=== PATIENT | female | born 1960 | race Caucasian/White ===

== ENCOUNTER → 2016-06-15 | Outpatient (REF) | payer OTHER | LOC: M SFHCWAGY 14:37 | PROVIDERS: ATTEND Nurse Practitioner Women's Health | DX: Z12.4 Encounter for screening for malignant neoplasm of cervix (principal) ==

== ENCOUNTER → 2016-06-15 | Outpatient (CLI) | payer BC ==
--- NOTE | 2016-06-15 15:20 | REPMRS ---
Patient History The patient states she had a clinical breast exam in 06/22 Patient is postmenopausal and is nulliparous. Digital Woman Screen Mammo: June 15, 2016 - Exam #: [id number] Bilateral CC and MLO view(s) were taken. Technologist: Anju Anne, Technologist Prior study comparison: July 30, 2014, digital woman screen mammo performed at [facility]. May 28, 2013, digital woman screen mammo performed at [facility]. FINDINGS: The breast tissue is heterogeneously dense. This may lower the sensitivity of mammography. There has been no change in the appearance of the mammogram from the prior studies. There is a moderate amount of residual fibroglandular tissue which is fairly symmetric. There is no interval development of dominant mass, areas of architectural distortion, or clustered microcalcification typical of malignancy. ASSESSMENT: BI-RADS/ACR category 1 mammogram. Negative. Recommendation Routine screening mammogram in 1 year (for women over age 40). This mammogram was interpreted with the aid of an FDA-approved computer-aided dectection system. Electronically Signed By: Joiv Lopez MD 06/15/16 [id number]
== END ==
LOC: M WHC 13:24
PROVIDERS: ATTEND Nurse Practitioner Women's Health
DX: Z12.31 Encounter for screening mammogram for malignant neoplasm of breast (principal); Z78.0 Asymptomatic menopausal state; Z92.89 Personal history of other medical treatment

== ENCOUNTER → 2016-09-05 | Outpatient (RCR) | payer BC, OTHER | LOC: M CR 08-17 08:31 | PROVIDERS: ATTEND Physician Assistant | DX: Z51.89 Encounter for other specified aftercare (principal); I25.10 Atherosclerotic heart disease of native coronary artery without angina pectoris; Z45.1 Encounter for adjustment and management of infusion pump ==

== ENCOUNTER 2016-09-28 12:51 | Outpatient (RCR) | payer BC, OTHER | END 2016-10-06 | LOC: M CR 12:51 | PROVIDERS: ATTEND Physician Assistant | DX: Z51.89 Encounter for other specified aftercare (principal); I25.10 Atherosclerotic heart disease of native coronary artery without angina pectoris; Z45.1 Encounter for adjustment and management of infusion pump ==

== ENCOUNTER 2017-11-22 07:20 | Day surgery (SDC) | payer BC, OTHER ==
[~2017-11-22 07:20] MED LIST: LIDOCAINE 2% INJ 100 MG/5 ML SDV (FOR ANES.) As Ordered; PROPOFOL 200 MG/20 ML VIAL As Ordered
[2017-11-22] MEDS: NS 1,000 ML IV ×2 (07:30)
[2017-11-22] MEDS ORDERED: fentaNYL 100 MCG/2 ML INJECTION (J3010) As Ordered ×2 (08:25)
[2017-11-22] MEDS ORDERED: PROPOFOL 200 MG/20 ML VIAL As Ordered ×2 (08:47)
== END 2017-11-22 09:35 | disposition home or self-care (01) ==
LOC: M OPP 07:20
DX: Z12.11 Encounter for screening for malignant neoplasm of colon (principal); K64.0 First degree hemorrhoids (principal); R10.13 Epigastric pain; K44.9 Diaphragmatic hernia without obstruction or gangrene; K31.89 Other diseases of stomach and duodenum; K31.5 Obstruction of duodenum; I11.0 Hypertensive heart disease with heart failure; E78.5 Hyperlipidemia, unspecified; K21.9 Gastro-esophageal reflux disease without esophagitis; I50.9 Heart failure, unspecified; F41.9 Anxiety disorder, unspecified; G43.909 Migraine, unspecified, not intractable, without status migrainosus; M31.30 Wegener's granulomatosis without renal involvement; Z79.82 Long term (current) use of aspirin; Z79.899 Other long term (current) drug therapy; Z88.2 Allergy status to sulfonamides; Z95.2 Presence of prosthetic heart valve; Z95.1 Presence of aortocoronary bypass graft; Z87.891 Personal history of nicotine dependence; Z91.89 Other specified personal risk factors, not elsewhere classified; Z78.0 Asymptomatic menopausal state
CPT/HCPCS: 45378

== ENCOUNTER → 2018-02-23 | Outpatient (CLI) | payer BC, OTHER ==
[~2018-02-23] MED LIST changes: +ASPI1TAB PO; +CELL500T PO; +CENT1TAB PO; +CITRTAB18 PO; +DOCU100C16 PO; +FLUO20CA8 PO; +IRBE75TA5 PO; -LIDOCAINE 2% INJ 100 MG/5 ML SDV (FOR ANES.) As Ordered; +METO50TA7 PO; +NAPR-885 PO; +OMEP40CA2 PO; +PRED1TABL PO; -PROPOFOL 200 MG/20 ML VIAL As Ordered; +ROSU20TA4 PO; +TORS20TA2 PO; +VITA500T PO; +[UNRECOGNIZED DRUG - OTHER] PO
--- NOTE | 2018-02-23 15:16 | REP ---
MAXILLOFACIAL CT WITHOUT CONTRAST: HISTORY: Chronic maxillary sinusitis. COMPARISON: 10/27/2010 Minimal mucosal thickening is present in the right maxillary sinus. The remaining sinuses are clear. The ostiomeatal units are patent. The middle and inferior nasal turbinates are partially paradoxical. There is minimal deviation of the nasal septum to the right. The cribriform plate, medial forrest of the orbits and optic canals are intact. The carotid canals form a segment of the posterolateral forrest of the sphenoid sinus. The right sphenoid sinus septum inserts into the right internal carotid canal wall. IMPRESSION: Sinus mucosal thickening as described above. Electronically Signed by Silver Eubanks MD 02/23/2018 03:21 P
== END ==
LOC: M RAD 14:43
PROVIDERS: ATTEND Otolaryngology
DX: J32.9 Chronic sinusitis, unspecified (principal)

== ENCOUNTER → 2018-06-15 | Outpatient (CLI) | payer BC ==
[~2018-06-15] MED LIST changes: -ASPI1TAB PO; +ASPI81TA26 PO; +CETI10TA4 PO; -[UNRECOGNIZED DRUG - OTHER] PO
--- NOTE | 2018-06-15 10:37 | REPMRS ---
Patient History The patient states she had a clinical breast exam in 06/2018. Patient is postmenopausal and is nulliparous. No known family history of cancer. No Hormone Replacement Therapy Digital Woman Screen Mammo: June 15, 2018 - Exam #: [id number] Bilateral CC and MLO view(s) were taken. Technologist: Ginny Parsons, Technologist Prior study comparison: June 15, 2016, digital woman screen mammo performed at [facility]. July 30, 2014, digital woman screen mammo performed at [facility]. May 28, 2013, digital woman screen mammo performed at [facility]. FINDINGS: The breast tissue is heterogeneously dense. This may lower the sensitivity of mammography. There is a moderate amount of heterogeneously dense fibroglandular tissue which is fairly symmetric. There is no interval development of dominant mass, architectural distortion, or clustered microcalcification typical of malignancy. There has been no change in the appearance of the mammogram from the prior studies. 3-D tomosynthesis shows no additional findings. Assessment: BI-RADS/ACR category 1 mammogram. Negative Mammogram. Recommendation Routine screening mammogram of both breasts in 1 year (for women over age 40). This patient's Lifetime Breast Cancer RIsk is estimated at 9.9 %. This mammogram was interpreted with the aid of an FDA-approved computer-aided dectection system. Electronically Signed By: Zan Morrow MD 06/15/18 [id number]
== END ==
LOC: M WHC 08:27
PROVIDERS: ATTEND Nurse Practitioner Women's Health
DX: Z12.31 Encounter for screening mammogram for malignant neoplasm of breast (principal); Z78.0 Asymptomatic menopausal state

== ENCOUNTER → 2018-06-15 | Outpatient (REF) | payer OTHER ==
[2018-06-19 14:16] LABS: HPV HYBRID CAPTURE II Negative (Negative)
== END ==
LOC: M SFHCWAGY 08:44
PROVIDERS: ATTEND Nurse Practitioner Women's Health
DX: Z12.4 Encounter for screening for malignant neoplasm of cervix (principal); Z78.0 Asymptomatic menopausal state
CPT/HCPCS: 87624; G0123

== ENCOUNTER → 2019-02-07 | Outpatient (REF) | payer OTHER ==
[~2019-02-07] MED LIST changes: +FLUO20CA20 PO; -FLUO20CA8 PO; -OMEP40CA2 PO; +OMEP40CA97 PO; -ROSU20TA4 PO; +ROSU20TA5 PO
== END ==
LOC: M SFHCWAGY 16:54
PROVIDERS: ATTEND Nurse Practitioner Family
DX: L02.214 Cutaneous abscess of groin (principal)

== ENCOUNTER → 2020-08-12 | Outpatient (REF) | payer OTHER ==
[~2020-08-12] MED LIST changes: +IRBE75TA4 PO; -IRBE75TA5 PO; +OMEP40CA4 PO; -OMEP40CA97 PO; +VITA-243 PO; -VITA500T PO
== END ==
LOC: M SFHCWAGY 13:16
PROVIDERS: ATTEND Nurse Practitioner Women's Health
DX: Z12.4 Encounter for screening for malignant neoplasm of cervix (principal); Z01.419 Encounter for gynecological examination (general) (routine) without abnormal findings

== ENCOUNTER → 2020-08-12 | Outpatient (CLI) | payer BC, OTHER ==
--- NOTE | 2020-08-12 10:12 | REP ---
INDICATION: SCR MAMMO. COMPARISON: Multiple TECHNIQUE: Digital screening mammography was cardio bilaterally in the CC and MLO projections in both 2D and 3D modalities and compared to the prior exams. By history, the patient has no complaints of a palpable breast abnormality or other significant breast complaints. FINDINGS: The breasts are unchanged in size and shape. Once again, dense heterogenous nodular fibroglandular elements are seen bilaterally to such a degree that the sensitivity of the mammogram in detecting cancers decreased. In the right breast upper inner quadrant retroglandular adipose there is an asymmetric density. There is a group of calcifications seen in conjunction with this density. No other suspicious features are seen in either breast. Scattered benign calcifications are again seen bilaterally. There is no skin thickening or nipple retraction. The Volpara volumetric breast density pattern is C. IMPRESSION: BIRADS/ACR category 0 mammogram. Jose asymmetric density seen in the right breast as described above and for which diagnostic digital magnified spot compression views are recommended in the CC and MLO projections. Spot DBT images may be utilized. An exaggerated CC medial view may also be necessary. Follow-up with diagnostic ultrasonography may be indicated. This patient's Tyrer-Cuzick lifetime breast cancer risk assessment score is 9.2%. This mammogram was interpreted with the aid of an FDA-approved computer-aided detection system. The patient states she had a clinical breast exam in August 2020. The patient letter being requested is M0. RECOMMENDATION: As above). <Electronically signed by Ran Walker > 08/12/20 0006
== END ==
LOC: M WHC 07:45
PROVIDERS: ATTEND Nurse Practitioner Women's Health
DX: Z12.31 Encounter for screening mammogram for malignant neoplasm of breast (principal); N63.12 Unspecified lump in the right breast, upper inner quadrant; R92.1 Mammographic calcification found on diagnostic imaging of breast

== ENCOUNTER → 2020-09-07 | Outpatient (CLI) | payer BC ==
--- NOTE | 2020-09-07 12:20 | REP ---
INDICATION: ADDITIONAL VIEWS RT BREAST. COMPARISON: Multiple. Latest prior screening examination 08/12/20 showed a new grouping of calcifications in the posterior retroglandular adipose tissue upper inner aspect of the right breast. TECHNIQUE: Diagnostic digital magnified spot compression views of the right breast were obtained in the CC and MLO projections over the region of interest. FINDINGS: There is a suspicious grouping of buck calcifications seen in the right breast upper inner aspect which vary in size, shape, and radiographic density. IMPRESSION: BIRADS/ACR category 4 mammogram. Right breast biopsy recommended as described above. The patient letter being requested is M4. RECOMMENDATION: As above <Electronically signed by Ran Walker > 09/07/20 [id number]
--- NOTE | 2020-09-08 09:27 | REP ---
INDICATION: Mammographic abnormality COMPARISON: None TECHNIQUE: As above FINDINGS: Are no cystic or solid masses IMPRESSION: ACR category 2 benign right breast ultrasound. <Electronically signed by Ran Walker > 09/08/20 [id number]
== END ==
LOC: M WHC 10:58
PROVIDERS: ATTEND Nurse Practitioner Women's Health
DX: Z12.31 Encounter for screening mammogram for malignant neoplasm of breast (principal); R92.1 Mammographic calcification found on diagnostic imaging of breast

== ENCOUNTER → 2020-09-24 | Outpatient (CLI) | payer BC, OTHER ==
[~2020-09-24] MED LIST changes: +K-TA10TA2 PO
[2020-09-24 15:54] VITALS: BP 132/80
--- NOTE | 2020-09-24 16:15 | REP ---
INDICATION: R92.8 ABN MAMMO RT BREAST,STEREOTACTIC BIOPSY. COMPARISON: 08/12/2020, 09/07/2020. TECHNIQUE: Specimen radiograph performed. FINDINGS: Tiny calcifications are seen in the specimens. IMPRESSION: Successful stereotactic biopsy of microcalcifications in the posteromedial right breast. RECOMMENDATION: . Clinical follow-up. <Electronically signed by Jovi Lopez > 09/24/20 [id number]
--- NOTE | 2020-09-24 16:19 | REP ---
INDICATION: R92.8 ABN MAMMO RT BREAST,POST STEREOTACTIC BIOPSY. COMPARISON: 08/12/2020, 09/07/2020. TECHNIQUE: ML, MLO and CC views right breast performed following stereotactic biopsy of microcalcifications in the upper inner right breast posteriorly. FINDINGS: A HydroMARK clip is noted at the site of the previously noted microcalcifications. The bulk of the calcifications are no longer visualized. IMPRESSION: Successful stereotactic biopsy of clustered microcalcifications superior posteromedial right breast. RECOMMENDATION: Clinical follow-up. <Electronically signed by Jovi Lopez > 09/24/20 [id number]
--- NOTE | 2020-09-30 14:22 | REP ---
INDICATION: R92.8 ABN MAMMO RT BREAST,STEREOTACTIC BIOPSY. COMPARISON: None. TECHNIQUE: The procedure was performed under the direct supervision of Dr. Lopez. The risks and benefits of the procedure were explained to the patient and informed consent was obtained. The patient has a history of a suspicious grouping of new calcifications in the right breast inner aspect seen on a previous mammogram dated 09/07/2020. A craniocaudal approach was utilized. The calcifications were localized using stereotactic mammographic guidance. 10 mL of 1% Xylocaine was used as a local anesthetic. A 10 gauge, suction assisted Mammotome needle was inserted and 10 core biopsy samples were obtained. Specimen radiograph demonstrates the presence of calcifications to be within the specimen. A marker clip(HydroMARK shape 1) was placed at the biopsy site. The patient tolerated the procedure well and there were no immediate complications. After the appropriate amount of monitored convalescence, the patient was discharged from the department. EBL: Less than 5 mL FINDINGS: None IMPRESSION: Stereotactic right breast biopsy with marker clip placement.(HydroMARK shape 1) <Electronically signed by Frank Iglesias > 09/24/20 [id number] <Electronically signed by Jovi Lopez > 09/24/20 [id number]
== END ==
LOC: M WHCPRO 06:48
PROVIDERS: ATTEND Nurse Practitioner Women's Health
DX: C50.911 Malignant neoplasm of unspecified site of right female breast (principal)

== ENCOUNTER → 2020-12-22 | Outpatient (CLI) | payer BC, OTHER ==
--- NOTE | 2020-12-22 10:11 | RADONC.CN ---
Radiation Oncology Hx/Consult Radiation Oncology Consult Date of Service: Dec 22, 2020 Pt Identifier Juana Valencia is a 60 year old female with screening mammogram detected right breast cancer pT1cN0(sn)M0 ER/AK+ HER2- grade 1. She is s/p lumpectomy and SLNB on 11/24/20 margins negative. She is seen for consideration of adjuvant RT. Diagnosis/Treatment History Oncologic History 08/12/20 Mammogram with right upper inner quadrant density 09/07/20 Diagnostic mammo BIRADS 4 09/24/20 Biopsy showing IDC ER/AK+ HER2- grade 1 with associated DCIS 11/24/20 Lumpectomy and SLNB pT1cN0(sn), margin directed reexcision, margins negative Breast history: Menses @ 14 Menopause @ 51 OCP x 20 years No HRT No IVF Interval History Here with her supportive . She has some ongoing tenderness in the right breast. She has no swelling or impaired ROM of the RUE. Appetite good and weight stable. Past Medical History: Anxiety [place]hman Back pain CHF CAD SD HPL HTN Family History: No family history of cancer Social History: 23 pack year former smoker quit 2006 Drinks occasionally Allergies / Meds Allergies: Coded Allergies: MS - Sulfa Drugs (Verified Allergy, Intermediate, RASH, 11/22/17) MS - Sulfa Drugs Cross Reactors (Verified Allergy, Intermediate, RASH, 11/22/17) Home Meds Reported Medications Potassium Chloride (K-Tab ER) 10 Meq Tablet.er, 1 TAB PO DAILY for 30 Days, #30 TAB 09/24/20 Prednisone (Prednisone) 1 Mg Tab, 3 MG PO DAILY, TAB 11/15/17 Ascorbic Acid (Vitamin C) 500 Mg Tab, 500 MG PO BID, TAB 11/15/17 Torsemide (Torsemide) 20 Mg Tab, 20 MG PO DAILY, TAB 11/15/17 Rosuvastatin Calcium (Rosuvastatin Calcium) 20 Mg Tab, 20 MG PO QPM, TAB 11/15/17 Omeprazole (Omeprazole) 40 Mg Cap, 40 MG PO DAILY, CAP 11/15/17 Metoprolol Tartrate (Metoprolol Tartrate) 50 Mg Tab, 50 MG PO BID, TAB 11/15/17 Cetirizine HCl (Cetirizine HCl) 10 Mg Tab, 10 MG PO DAILY, TAB 11/15/17 Irbesartan (Irbesartan) 75 Mg Tab, 75 MG PO DAILY, TAB 11/15/17 Fluoxetine Hcl (Fluoxetine HCl) 20 Mg Cap, 60 MG PO DAILY, CAP 11/15/17 Calcium Citrate/Vitamin D3 (Citracal + D Maximum Caplet) 1 Tab Tab, 1 TAB PO DAILY, TAB 11/15/17 Multivit-Min/FA/Lycopen/Lutein (Centrum Silver Tablet) 1 Tab Tab, 1 TAB PO DAILY, TAB 11/15/17 Mycophenolate Mofetil (Cellcept) 500 Mg Tab, 1500 MG PO BID, TAB 11/15/17 Aspirin (Aspirin EC) 81 Mg Tab, 81 MG PO DAILY, #30 TAB 11/15/17 Review of Systems Constitutional: Denies: Fatigue, Weight Loss Eyes: Denies: Pain HEENT: Denies: Head Aches Skin: Denies: Rash Pulmonary: Denies: Dyspnea, Cough Cardiovascular: Denies: Chest Pain, Palpitations, Edema Breast: Reports: Breast Pain or Tenderness; Denies: New Breast Lumps / Masses, Nipple Retraction, Nipple Discharge, Breast Skin Changes Gastrointestinal: Denies: Nausea, Abdominal Pain Musculoskeletal: Denies: Neck pain, Arm pain, Back pain Neurological: Denies: Weakness, Numbness Psych: Reports: Mood Normal Vital Signs Ht 64" Wt 228 lbs BMI 39 RR 18 BP 139/74 O2 97% Pain 6 breast/back Fatigue 0 General Exam: Alert, Cooperative, No Acute Distress Eye Exam: PERRLA, EOMI ENT EXAM: Atraumatic Neck Exam: Supple; Negative: Lymphadenopathy Chest Exam: Clear to auscultation Heart Exam: Rate Normal Breast Exam: Symmetric Bilaterally (Ptosis), Skin Changes (Medial right breast incision well-healed); Negative: Lumps or Masses Abdomen Exam: Soft Extremity Exam: Negative: Edema Skin Exam: Nl turgor and temperature Neuro Exam: Normal Gait, Normal Speech, Cranial Nerves 3-12 NL Psych Exam: Mental status NL Diagnostic and Laboratory Diagnostic Review Radiologic images, relevant labs and pathology reports were personally reviewed and discussed with Ms. Valencia. Assessment and Plan Impression Ms. Valencia is a 60 year old female with a history of screening mammogram detected right breast cancer pT1cN0(sn)M0 ER/AK+ HER2- grade 1. She is s/p lumpectomy and SLNB on 10/19/21 margins negative. She is seen for consideration of adjuvant RT. Stage Right upper inner breast cancer pT1cN0(sn)M0 ER/AK+ HER2- grade 1 stage IA Performance Status ECOG 0 Plan We had an extensive discussion with Ms. Valencia regarding the diagnosis at hand and available therapeutic options. She is recovering well from surgery. She states she intends to take an AI after RT. She had previously discussed adjuvant WBI versus partial breast RT with Dr. Bolaños. I recommended she consider hypofractionated PBI versus APBI, as given her large breast habitus WBI would precipitate more extensive skin reaction and possibly fibrosis for no meaningful LC benefit over partial breast approaches. She agreed to 40 Gy in 15 fractions to the right partial breast with 3D planning and daily CBCT for localization. We discussed the logistics of receiving radiation therapy in detail including the need for a 1-time planning session. This can occur in the coming week. We reviewed the side effects of RT including fatigue, skin reaction, and late fibrosis. After discussing the risks, benefits and alternatives to radiation therapy, Ms. Valencia was amenable to pursuing radiotherapy. All questions were answered to the patient's satisfaction. We instructed the patient that if there were any questions,concerns or changes in clinical status in the interim to contact us. Recommendations Adjuvant partial breast RT 40 Gy in 15 fractions Simulation in the coming week Billing Statement Total time of [45] minutes was spent preparing for the visit [2], obtaining HPI [8], examining the patient [4], reviewing diagnostic tests [3], discussing management options [15], coordinating care [3], and writing this note [10]. DREW CHACKO MD Dec 22, 2020 10:11
== END ==
LOC: M ONCR 08:45
PROVIDERS: ATTEND General Practice
DX: C50.211 Malignant neoplasm of upper-inner quadrant of right female breast (principal); Z88.2 Allergy status to sulfonamides; Z79.899 Other long term (current) drug therapy

== ENCOUNTER → 2021-01-11 | Outpatient (REF) | LOC: M LABSMTC 12:31 | PROVIDERS: ATTEND Pediatrics | DX: Z20.822 Contact with and (suspected) exposure to COVID-19 (principal) ==

== ENCOUNTER 2021-02-04 08:24 | Outpatient (RCR) | payer BC, OTHER ==
[2021-02-04] MEDS ORDERED: COLA100C5 PO (09:06)
[2021-02-04] MEDS ORDERED: ASPE4PAD TOP (13:07)
[2021-02-05] MEDS ORDERED: TRAM50TA2 PO (18:06)
[2021-02-10] MEDS ORDERED: PRED10PA PO (08:54)
== END 2021-02-05 ==
LOC: M ONCR 08:24
PROVIDERS: ATTEND General Practice
DX: C50.211 Malignant neoplasm of upper-inner quadrant of right female breast (principal)

== ENCOUNTER 2021-02-04 08:57 | Emergency (ER) | payer BC, OTHER ==
[~2021-02-04] VITALS: Ht 167.6 cm; Wt 102.3 kg
[2021-02-04] MEDS ORDERED: COLA100C5 PO (09:06)
[2021-02-04] MEDS ORDERED: NS 1,000 ML IV ONE (10:45)
[2021-02-04 11:43] LABS: BASO % 0.3 % (0.0-1.0); EOS # 0.2 10^3/uL (0.0-0.5); EOS % 2.1 % (0.0-3.0); HEMATOCRIT 39.6 % (36.0-47.0); HEMOGLOBIN 12.8 g/dl (12.0-15.5); LYMPH # 1.2 10^3/uL (1.5-5.0); LYMPH % 12.8 % (24.0-44.0); MEAN CORPUSCULAR HGB CONC 32.3 g/dl (32.0-36.5); MEAN CORPUSCULAR VOLUME 83.5 fl (80.0-96.0); MONO # 0.5 10^3/uL (0.0-0.8); MONO % 4.8 % (2.0-8.0); NEUTROPHILS # 7.7 10^3/uL (1.5-8.5); NEUTROPHILS % 79.7 % (36.0-66.0); PLATELET COUNT, AUTOMATED 296 10^3/uL (150-450); RED BLOOD COUNT 4.74 10^6/uL (4.00-5.40); WHITE BLOOD COUNT 9.6 10^3/uL (4.0-10.0)
[2021-02-04 12:16] LABS: ALBUMIN 3.6 GM/DL (3.2-5.2); ALT/SGPT 17 U/L (12-78); BILIRUBIN,DIRECT 0.1 MG/DL (0.0-0.2); BILIRUBIN,TOTAL 0.2 MG/DL (0.2-1.0); BLOOD UREA NITROGEN 17 MG/DL (7-18); CALCIUM LEVEL 9.1 MG/DL (8.5-10.1); CARBON DIOXIDE LEVEL 27 MEQ/L (21-32); CHLORIDE LEVEL 106 MEQ/L (98-107); CREATININE FOR GFR 0.75 MG/DL (0.55-1.30); GLOMERULAR FILTRATION RATE > 60.0 (>51); GLUCOSE, FASTING 113 MG/DL (70-100); LIPASE 106 U/L (73-393); POTASSIUM SERUM 4.1 MEQ/L (3.5-5.1); SODIUM LEVEL 140 MEQ/L (136-145); TOTAL PROTEIN 6.9 GM/DL (6.4-8.2)
[2021-02-04] MEDS ORDERED: ISOVUE-370 76% 100ML VIAL As Ordered ONE (12:18)
--- NOTE | 2021-02-04 12:40 | REP ---
INDICATION: LLQ abd pain x 1 wk, breast CA rad therapy. COMPARISON: 11/10/2011 TECHNIQUE: Axial contrast-enhanced images from the lung bases to the pubic symphysis using 100 cc Isovue 370 intravenous contrast material. Coronal and sagittal reformations obtained. This CT examination was performed using the following dose reduction techniques: Automated exposure control, adjustment of mA and/or kv according to the patient's size, and the use of iterative reconstruction technique. FINDINGS: Liver, spleen, pancreas, gallbladder, bilateral adrenal glands and kidneys are normal. The enteric system including stomach, small, and large bowel appears normal. No evidence for obstruction or acute inflammatory process. Normal terminal ileum and appendix are identified in the right lower quadrant. Pelvis demonstrates normal bladder and age-appropriate prostate/seminal vesicles. No ascites. No free air. No intraperitoneal or retroperitoneal adenopathy. Abdominal aorta and vasculature appear normal. Musculoskeletal structures demonstrate chronic scoliosis and degenerative changes without acute osseous abnormality. A 5 mm noncalcified nodule in the periphery of the left lower lobe (series 204; image 16) is nonspecific. IMPRESSION: 1. No acute abdominopelvic pathology appreciated. 2. 5 mm noncalcified nodule in the left lower lobe is nonspecific. No prior examinations are available for comparison. Consider 6 month follow-up examination. <Electronically signed by Miguel Sosa > 02/04/21 [id number]
[2021-02-04 13:04] VITALS: BP 118/58
[2021-02-04] MEDS ORDERED: ASPE4PAD TOP (13:07)
--- NOTE | 2021-02-04 19:35 | ED PDOC ---
Post-Departure Follow-Up ct abd/p faxed to dr gray for fu Janee Carrillo MD Feb 04, 2021 19:35
[2021-02-05] MEDS ORDERED: TRAM50TA2 PO (18:06)
== END 2021-02-04 13:05 | disposition home or self-care (01) ==
LOC: M ED 08:57
DX: R10.32 Left lower quadrant pain (principal); R91.1 Solitary pulmonary nodule; C50.919 Malignant neoplasm of unspecified site of unspecified female breast; Z92.3 Personal history of irradiation; I10 Essential (primary) hypertension; E78.5 Hyperlipidemia, unspecified; R51.9 Headache, unspecified; K21.9 Gastro-esophageal reflux disease without esophagitis; M31.30 Wegener's granulomatosis without renal involvement; Z95.1 Presence of aortocoronary bypass graft; Z79.82 Long term (current) use of aspirin; Z79.899 Other long term (current) drug therapy; Z88.2 Allergy status to sulfonamides
CPT/HCPCS: 74177; 80048; 80076; 83690; 85025; 96360; 99284; Q9967

== ENCOUNTER → 2021-02-08 | Outpatient (REF) ==
[~2021-02-08] MED LIST changes: +ASPE4PAD TOP; +COLA100C5 PO; +TRAM50TA2 PO
== END ==
LOC: M LABSMTC 12:27
PROVIDERS: ATTEND Pediatrics
DX: Z11.52 Encounter for screening for COVID-19 (principal); Z20.822 Contact with and (suspected) exposure to COVID-19

== ENCOUNTER 2021-03-02 08:25 | Outpatient (RCR) | payer BC, OTHER ==
[~2021-03-02 08:25] MED LIST changes: +FLUO-96 PO; -FLUO20CA20 PO; +PRED10PA PO
== END 2021-03-08 ==
LOC: M ONCR 08:25
PROVIDERS: ATTEND General Practice
DX: C50.211 Malignant neoplasm of upper-inner quadrant of right female breast (principal)

== ENCOUNTER → 2021-07-30 | Outpatient (CLI) | payer BC, OTHER | LOC: M PLAIMG 13:00 | PROVIDERS: ATTEND Family Medicine | DX: R91.1 Solitary pulmonary nodule (principal) ==

== ENCOUNTER → 2021-08-18 | Outpatient (CLI) | payer BC, OTHER | LOC: M ONCR 14:21 | PROVIDERS: ATTEND General Practice | DX: C50.211 Malignant neoplasm of upper-inner quadrant of right female breast (principal); Z92.3 Personal history of irradiation; Z87.891 Personal history of nicotine dependence; Z88.1 Allergy status to other antibiotic agents; Z88.2 Allergy status to sulfonamides ==

== ENCOUNTER → 2022-08-17 | Outpatient (REF) | payer BC, OTHER ==
[~2022-08-17] MED LIST changes: -K-TA10TA2 PO; +POTA-165 PO; -ROSU20TA5 PO; +ROSU20TA61 PO
== END ==
LOC: M SFHCDERM 17:31
PROVIDERS: ATTEND Physician Assistant
DX: L82.0 Inflamed seborrheic keratosis (principal)

== ENCOUNTER → 2022-08-18 | Outpatient (CLI) | payer BC, OTHER | LOC: M ONCR 14:16 | PROVIDERS: ATTEND General Practice | DX: C50.211 Malignant neoplasm of upper-inner quadrant of right female breast (principal); Z71.2 Person consulting for explanation of examination or test findings; Z79.52 Long term (current) use of systemic steroids; Z79.811 Long term (current) use of aromatase inhibitors; Z79.899 Other long term (current) drug therapy; Z87.891 Personal history of nicotine dependence; Z88.1 Allergy status to other antibiotic agents; Z88.2 Allergy status to sulfonamides; Z92.3 Personal history of irradiation; Z98.890 Other specified postprocedural states ==

== ENCOUNTER → 2023-09-05 | Outpatient (CLI) | payer BC ==
[~2023-09-05] MED LIST changes: +IRBE75TA11 PO; -IRBE75TA4 PO
== END ==
LOC: M ONCR 15:14
PROVIDERS: ATTEND General Practice
DX: C50.211 Malignant neoplasm of upper-inner quadrant of right female breast (principal); R23.2 Flushing; Z79.811 Long term (current) use of aromatase inhibitors; Z79.82 Long term (current) use of aspirin; Z79.899 Other long term (current) drug therapy; Z87.891 Personal history of nicotine dependence; Z88.1 Allergy status to other antibiotic agents; Z88.2 Allergy status to sulfonamides; Z92.3 Personal history of irradiation

== ENCOUNTER → 2024-09-04 | Outpatient (CLI) | payer BC ==
[~2024-09-04] MED LIST changes: +PRED-1142 PO; -PRED1TABL PO; -ROSU20TA61 PO; +ROSU20TA86 PO
== END ==
LOC: M ONCR 15:22
PROVIDERS: ATTEND General Practice
DX: C50.211 Malignant neoplasm of upper-inner quadrant of right female breast (principal); Z17.0 Estrogen receptor positive status [ER+]; Z17.21 Progesterone receptor positive status; Z17.32 Human epidermal growth factor receptor 2 negative status; Z98.890 Other specified postprocedural states; Z92.3 Personal history of irradiation; Z87.891 Personal history of nicotine dependence; Z88.1 Allergy status to other antibiotic agents; Z88.2 Allergy status to sulfonamides; Z79.52 Long term (current) use of systemic steroids; Z79.82 Long term (current) use of aspirin; Z79.899 Other long term (current) drug therapy; R23.2 Flushing

== ENCOUNTER → 2024-10-23 | Outpatient (REF) | payer BC ==
[2024-10-30 16:38] LABS: HPV APTIMA Not Detected (Not Detected)
== END ==
LOC: M PLALAB 14:22
PROVIDERS: ATTEND Nurse Practitioner Family
DX: Z01.419 Encounter for gynecological examination (general) (routine) without abnormal findings (principal)
CPT/HCPCS: 87624; G0123

== ENCOUNTER 2024-12-16 07:20 | Day surgery (SDC) | payer BC ==
[~2024-12-16] VITALS: Ht 165.1 cm; Wt 101.2 kg
[~2024-12-16 07:20] MED LIST changes: +DICY1CAP8 PO; +K2 P1TAB PO; +LIDO5TD TOP; +OMEP1CAP73 PO; +POTA-298 PO; +RITU10VLL IV; +VENL150C43 PO
[2024-12-16] MEDS ORDERED: LIDOCAINE 2% 100 MG/5 ML SDV (FOR ANES.) As Ordered ONE (08:30)
[2024-12-16 09:11] VITALS: TEMP 97.7
[2024-12-16 09:23] VITALS: BP 112/60; O2SAT 95
== END 2024-12-16 09:48 | disposition home or self-care (01) ==
LOC: M OPP 07:20
PROVIDERS: ATTEND Internal Medicine Gastroenterology
DX: Z12.11 Encounter for screening for malignant neoplasm of colon (principal); K64.0 First degree hemorrhoids; K57.30 Diverticulosis of large intestine without perforation or abscess without bleeding; K22.70 Barrett's esophagus without dysplasia; R12 Heartburn; Z88.2 Allergy status to sulfonamides; Z79.82 Long term (current) use of aspirin; Z79.52 Long term (current) use of systemic steroids; Z79.899 Other long term (current) drug therapy; I25.10 Atherosclerotic heart disease of native coronary artery without angina pectoris; Z95.1 Presence of aortocoronary bypass graft; Z87.891 Personal history of nicotine dependence